=== PATIENT | male | born 1965 | race Caucasian/White ===

== ENCOUNTER 2024-08-17 19:44 | Emergency (ER) | payer BC ==
[~2024-08-17] VITALS: Ht 185.4 cm; Wt 90.7 kg
[2024-08-17 19:58] VITALS: BP 143/91; O2SAT 97
[2024-08-17] MEDS ORDERED: LIPITOR20 MG PO (19:58)
[2024-08-17] MEDS ORDERED: ZESTRIL10 M1 PO (19:59)
[2024-08-17] MEDS ORDERED: VALACYCLOVIR500 MG PO (19:59)
[2024-08-17] MEDS ORDERED: ODEFSEY TABLET1 EACH PO (20:00)
[2024-08-17] MEDS ORDERED: FAMOtidine 40 MG TABLET PO ONE (20:30)
[2024-08-17] MEDS ORDERED: LIDOCAINE HCL 1% 10ML VIAL PERCUT ONE (20:30)
[2024-08-17] MEDS ORDERED: CEFTRIAXONE SODIUM 1,000 MG VIAL IM ONE (20:30)
[2024-08-17] MEDS ORDERED: CEFTRIAXONE SODIUM 1,000 MG VIAL ONE (20:34)
[2024-08-17] MEDS ORDERED: LIDOCAINE HCL 1% 10ML VIAL ONE (20:34)
[2024-08-17] MEDS ORDERED: PEPCID20 MG PO (23:38)
[2024-08-17] MEDS ORDERED: CEPHALEXIN750 MG PO (23:38)
[2024-08-17] MEDS ORDERED: ACETAMINOPHEN 500 MG GEL..CAP PO ONE (23:44)
[2024-08-17] MEDS ORDERED: IBUprofen 800 MG TABLET PO ONE (23:45)
== END 2024-08-17 23:48 | disposition home or self-care (01) ==
LOC: ER 19:46
DX: S01.511A Laceration without foreign body of lip, initial encounter (principal); W19.XXXA Unspecified fall, initial encounter; Y93.I9 Activity, other involving external motion; Y92.89 Other specified places as the place of occurrence of the external cause; Y99.8 Other external cause status; B20 Human immunodeficiency virus [HIV] disease; Z88.1 Allergy status to other antibiotic agents; Z88.2 Allergy status to sulfonamides